=== PATIENT | female | born 1980 | race Two or more races ===

== ENCOUNTER 2023-07-30 04:36 | Emergency (ER) | payer MEDICAID ==
[~2023-07-30] VITALS: Ht 157.5 cm; Wt 100.0 kg
[2023-07-30] MEDS ORDERED: AUG875T PO (05:25)
[2023-07-30 05:41] VITALS: BP 164/92; PULSE 103; RESP 18; TEMP 98.4; O2SAT 100
== END 2023-07-30 05:48 | disposition home or self-care (01) ==
LOC: ER 04:36
DX: L02.01 Cutaneous abscess of face (principal)

== ENCOUNTER 2024-07-27 18:32 | Emergency (ER) | payer SELFPAY ==
[~2024-07-27] VITALS: Ht 157.5 cm; Wt 100.0 kg
[~2024-07-27 18:32] MED LIST: AUG875T PO
[2024-07-27 18:49] VITALS: BP 199/146; PULSE 132; RESP 18; TEMP 103; O2SAT 97
--- NOTE | 2024-07-27 19:26 | ED.PDOC ---
History of Present Illness HPI Comments 43 year old female came to ER for flu like symptoms. Patient has been having flu like symptoms since yesterday, with cough, congestion, headaches, body malaise, abdominal pain, with nausea, vomiting and diarrhea. Patient has history of hypertension but has poor compliance to her medications. She does use metha mphetamines. 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 Cardiac: No chest pain. No palpitations. Lungs: No shortness of breath, (+) cough. GI: (+) nausea, (+) vomiting, (+) diarrhea, no constipation, (+) abdominal pain : No dysuria, frequency, or urgency. No hematuria. Musculoskeletal: No joint pain , no joint swelling, no extremity edema. Skin: No rash, no itching. Neuro: (+) headache, no dizziness, no weakness Vital Signs Vital Signs Date Time Temp Pulse Resp B/P (MAP) Pulse Ox O2 Delivery O2 Flow Rate FiO2 07/27/24 18:49 103.0 132 18 199/146 (163) 97 103.0 Physical Exam General: Awake, alert and oriented. No acute distress. Skin: Skin in warm, dry and intact. Appropriate color for ethnicity. Nailbeds pink with no cyanosis. HEENT: The head is normocephalic and atraumatic. Conjunctivae are clear without exudates or hemorrhage. Sclera is non-icteric. EOM are intact. No signs of nystagmus. Eyelids are normal in appearance without swelling or lesions. Oral mucosa is pink and moist Neck: The neck is supple with normal range of motion. No JVD. Cardiac: Heart rate and rhythm are normal. No murmurs, gallops, or rubs are auscultated. Respiratory: No signs of respiratory distress. Lung sounds are clear in all lobes bilaterally without rales, ronchi, or wheezes. Abdominal: Abdomen is soft, non-tender without distention. Bowel sounds are present and normoactive in all four quadrants. Extremities: Upper and lower extremities are atraumatic in appearance without deformity or edema. Neurological: The patient is awake, alert and oriented to person, place, and time with normal speech. Speech is clear. There is no facial asymmetry. Psychiatric: Appropriate mood and affect. Good judgement and insight. No visual or auditory hallucinations. 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 Was a procedure done?: No Differential Dx Considerations may include: anemia, electrolyte imbalance, influenza, gastroenteritis, URI X-Ray, Labs, Meds, VS Vital Signs Date Time Temp Pulse Resp B/P (MAP) Pulse Ox O2 Delivery O2 Flow Rate FiO2 07/27/24 18:49 103.0 132 18 199/146 (163) 97 103.0 Time of 1ST Reevaluation: 19:21 Reevaluation 1ST: Unchanged Patient Education/Counseling: Diagnosis, Treatment Family Education/Counseling: No Family Present Departure 1 Departure Comments Extensive evaluation was performed in attempt to identify or rule out: (See differential diagnosis section) The following tests were ordered, and results were reviewed by me: (See diagnostic results section) The following test were independently interpreted by me: N/A I reviewed and agreed with the following test results read by other providers: N/A I reviewed the following notes from the pt's past medical encounters: (None available at this time) Additional information was gathered from interviewing the following independent historians: N/A Discussion of management or test interpretation with external physician/other qualified health health care liaison: N/A Addressed [ ]one or more chronic illnesses with severe exacerbation, progression, or side effects of treatment: [ ]an acute or chronic illness that poses a threat to life or bodily function: [ ] Decision regarding hospitalization or escalation of hospital level of care: Risk and benefits of admission for further treatment of patient's condition was co nsidered. Due to patient's current clinical condition, high risk of decline and poor outcome if discharged and need for further inpatient management and monitoring, patient will be admitted to the hospital. Drug therapy requiring intensive monitoring for toxicity: N/A Parenteral controlled substances: N/A Decision regarding elective major surgery with identified patient or procedure risk factors: N/A Decision regarding emergency major surgery: N/A Decision not to resuscitate or to de-escalate care because of poor prognosis: N/A Diagnosis or treatment significantly limited by social determinants of health: N/A Decision regarding hospitalization or escalation of hospital level of care: Risks and benefits of admission for further treatment of patient's condition was considered however due to patient's stable condition patient will be discharged to follow up closely or return to care for worsening of condition or inability to follow up. Critical Care Note Critical Care Time?: No Stability Stability form required: No I personally scribed for LARRY TORRES MD ([email or web address]) on 07/27/24 at 19:26. Electronically submitted by Mateo Kinney ([email or web address]). I personally scribed for LARRY TORRES MD ([email or web address]) on 07/27/24 at 20:18. Electronically submitted by Mateo Kinney ([email or web address]). LARRY TORRES MD Jul 27, 2024 19:26
[2024-07-27] MEDS ORDERED: LABETALOL HCL 20 MG/4 ML VL IV ONE (20:30)
[2024-07-27] MEDS ORDERED: KETOROLAC TROMETH 30 MG/ML 1ML VIAL IV ONE (20:30)
== END 2024-07-27 20:23 | disposition left against medical advice (07) ==
LOC: EDUNIT# 18:32 → EDBD 18:32 → ER 18:44
DX: J11.1 Influenza due to unidentified influenza virus with other respiratory manifestations (principal); R51.9 Headache, unspecified; F15.10 Other stimulant abuse, uncomplicated; I10 Essential (primary) hypertension